=== PATIENT | female | born 1990 | race Caucasian/White ===

== ENCOUNTER 2018-11-08 11:05 | Inpatient (IN) ==
[2018-11-08 12:03] LABS: Bilirubin,Urine Negative (Negative); Clarity,Urine Slightly Cloudy (Clear); Color,Urine Yellow (Yellw/Straw); Glucose,Urine (UA) Negative (Negative); Leukocyte Esterase,Urine Moderate (Negative); Nitrite,Urine Negative (Negative); Urobilinogen,Urine 0.2 mg/dL (Less than 2)
[2018-11-08 12:09] LABS: Bacteria,Urine Few /hpf; Squamous Epithelial Cell,Urine 0-5 /hpf (0-5); WBC,Urine 51-189 /hpf (0-5)
[2018-11-08] MEDS ORDERED: Vancomycin Inj 1,000 MG in Sodium Chlor 0.9% Inj 250 ML IV.SIG ONE (12:55)
--- NOTE | 2018-11-08 13:10 | ED ---
HPI General Chief complaint: Skin/Abscess/Foreign Body Stated complaint: Poss Ins Bite L Arm Pain/Swelling x5d/Lower Back x Time Seen by Provider: 11/08/18 12:41 Source: patient Mode of arrival: ambulatory Limitations: no limitations History of Present Illness HPI narrative: Patient is a 28-year-old female who presents the emergency room with complaints of abscess to her left forearm. Patient reports that about 1 week ago, she began to have fevers and chills. Patient reports that shortly thereafter, she began to develop abscesses to her left forearm. Patient reports that the abscesses have gotten significantly bigger in size. Patient reports concerns for possible infection to her left forearm. 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 Patient also reports that she was a past IVDA. She last used drugs about 9 months ago. Tetanus is up to date. Patient is also complaining of bilateral flank pain. Patient is concerned that she may have a UTI. Related Data Home Medications Medication Instructions Recorded Confirmed Topamax 11/08/18 alprazolam 11/08/18 Allergies Allergy/AdvReac Type Severity Reaction Status Date / Time morphine Allergy Headache Verified 11/08/18 11:30 Review of Systems ROS: all other systems reviewed are negative PMFSH History History Provided By: Patient Medical History Medical History History of anxiety (Acute) History of intravenous drug abuse (Acute) History of use of contraceptive intrauterine device (IUD) (Acute) Social History Social History Substance History: Active Abuse Second Hand Smoke Exposure: Yes Smoking Status: Current every day smoker Tobacco Type: Cigarettes How Often Do You Have a Drink Containing Alcohol: 2 to 4 times a month Recent Travel in [facility] within the Last 8 Weeks: No Recent Out of Country Travel within the Last 8 Weeks: No Exam Narrative Exam Narrative: GENERAL: Mild distress SKIN: Focused skin assessment warm/dry. HEAD: Atraumatic. Normocephalic. EYES: Pupils equal and round. No scleral icterus. No injection or drainage. ENT: No nasal bleeding or discharge. Mucous membranes pink and moist. NECK: Trachea midline. No JVD. CARDIOVASCULAR: Tachycardic No murmur appreciated. RESPIRATORY: No accessory muscle use. Clear to auscultation. Breath sounds equal bilaterally. GASTROINTESTINAL: Abdomen soft, non-tender, nondistended. Hepatic and splenic margins not palpable. MUSCULOSKELETAL: No obvious deformities. No clubbing. No cyanosis. No edema. Patient with abscess to left forearm - there is no drainage or erythema NEUROLOGICAL: Awake and alert. No obvious cranial nerve deficits. Motor grossly within normal limits. Normal speech. PSYCHIATRIC: Appropriate mood and affect; insight and judgment normal. Course Initial Documented Vital Signs Temperature 98.2 F 11/08/18 11:31 Pulse Rate 105 H 11/08/18 11:31 Respiratory Rate 18 11/08/18 11:31 Blood Pressure 133/79 11/08/18 11:31 Pulse Oximetry 97 11/08/18 11:31 Last Documented Vital Signs Temperature 98.2 F 11/08/18 11:31 Pulse Rate 105 H 11/08/18 11:31 Respiratory Rate 18 11/08/18 11:31 Blood Pressure 133/79 11/08/18 11:31 Pulse Oximetry 97 11/08/18 11:31 Medical Decision Making MDM Narrative Medical decision making narrative: During the course of the patients emergency department visit, the patients history, examination, and differential diagnosis were reviewed with the patient. The patient was placed on a personnel monitor with oximetry and frequent blood pressure monitoring. The patient had an IV access obtained and blood work sent for analysis. The patient was initially provided IV vanco as well as IV rocephine The patients laboratory studies were reviewed and remarkable for WBC 16.4, hemoglobin 12.6, hematocrit 37.6, platelets 241 Radiology studies were reviewed and remarkable for: us of forearm with 4.5x1.9cm abscess - I am unable to I&D this as it appears to be a deep abscess, plan to admit the hospital and have hand surgery I&D this abscess. Case reviewed with Dr. Amaral who accepts pt to service Medical Screen Exam Complete: Yes Emergency Medical Condition: Yes Differential Diagnosis Differential Diagnosis: abscess, uti Medical Records Medical records reviewed: Yes I reviewed the patient's medical records. Lab Data Lab results reviewed: Yes I reviewed the patient's lab results. Result diagrams: 11/08/18 13:20 11/08/18 13:20 POC Results POC Urine Results Negative Lab Results 11/08/18 11/08/18 11/08/18 Range/Units 11:30 13:20 13:20 CBC w Diff Auto diff final WBC 16.4 H (4.0-11.0) th/mm3 RBC 4.20 (4.00-5.30) mil/mm3 Hgb 12.6 (11.6-15.3) gm/dL Hct 37.6 (35.0-46.0) % MCV 89.6 (80.0-100.0) fL MCH 30.0 (27.0-34.0) pg MCHC 33.6 (32.0-36.0) % RDW 13.0 (11.6-17.2) % Plt Count 241 (150-450) th/mm3 MPV 9.7 (7.0-11.0) fL Neut % (Auto) 78.8 H (16.0-70.0) % Lymph % (Auto) 11.2 (9.0-44.0) % [place] % (Auto) 9.2 H (0.0-8.0) % Eos % (Auto) 0.4 (0.0-4.0) % Baso % (Auto) 0.4 (0.0-2.0) % Neut # (Auto) 12.9 H (1.8-7.7) th/mm3 Lymph # (Auto) 1.8 (1.0-4.8) th/mm3 [place] # (Auto) 1.5 H (0.0-0.9) th/mm3 Eos # (Auto) 0.1 (0.0-0.4) th/mm3 Baso # (Auto) 0.1 (0.0-0.2) th/mm3 WBC Differential . Differential Comment . Sodium 136 (136-145) meq/L Potassium 4.2 (3.5-5.1) meq/L Chloride 100 (98-107) meq/L Carbon Dioxide 27.7 (21.0-32.0) meq/L Anion Gap 8 (5-15) meq/L BUN 18 (7-18) mg/dL Creatinine 0.86 (0.50-1.00) mg/dL Estimated GFR 78 L (>89) mL/min Random Glucose 81 (74-106) mg/dL Calcium 9.0 (8.5-10.1) mg/dL Ur Collection Type Clean catch Urine Color Yellow (Yellw/Straw) Urine Clarity Slightly cloudy (Clear) Urine pH 6.0 (5.0-8.5) Ur Specific [place] 1.020 (1.002-1.035) Urine Protein Negative (Neg-Trace) mg/dL Urine Glucose (UA) Negative (Negative) mg/dL Urine Ketones Negative (Negative) mg/dL Urine Occult Blood Small H (Negative) Urine Nitrate Negative (Negative) Urine Bilirubin Negative (Negative) Urine Urobilinogen 0.2 (Less than 2) mg/dL Ur Leukocyte Esterase Moderate H (Negative) Urine RBC 4-15 H (0-3) /hpf Urine WBC 51-189 H (0-5) /hpf Urine WBC Clumps Moderate H (None) Ur Squamous Epith Cells 0-5 (0-5) /hpf Urine Bacteria Few H (None) /hpf Micro UA Comment Culture indicated Ur Microscopic Review Microscopic reviewed Urine Culture Comments Culture indicated Imaging Data Attestation: I personally reviewed and interpreted this imaging study as follows : Radiologist's impression: Forearm X-Ray 11/08/18 12:55 CONCLUSION: Unremarkable study except for soft tissue swelling. Lower Extremity Ultrasound 11/08/18 12:55 CONCLUSION: 1. Soft tissue abscess. Discharge Plan Discharge Disposition Patient Disposition: ED Admit(ED Internal Use Only) Discharge Condition Condition: Stable Discharge Order Discharge Orders: ED Use Only Admit Order (Routine); Ordered 11/08/18 Ordered By: Sandra Guidry Discharge Details Diagnosis: Abscess of forearm, left Physicians Team ED Provider: Sandra Guidry Primary Care Provider: Palmer Cheung Rxs /Orders / Referrals /Forms Prescriptions: No Action Topamax RF: 0 alprazolam RF: 0 Status ED Status: With Doctor
[2018-11-08] MEDS ORDERED: Ibuprofen 600 MG Tablet PO ONE (13:39)
[2018-11-08 13:53] LABS: Baso # (Auto) 0.1 th/mm3 (0.0-0.2); Baso % (Auto) 0.4 % (0.0-2.0); Eos # (Auto) 0.1 th/mm3 (0.0-0.4); Eos % (Auto) 0.4 % (0.0-4.0); Hematocrit 37.6 % (35.0-46.0); Hemoglobin 12.6 gm/dL (11.6-15.3); Lymph # (Auto) 1.8 th/mm3 (1.0-4.8); Lymph % (Auto) 11.2 % (9.0-44.0); Mean Corpuscular HGB Conc 33.6 % (32.0-36.0); Mean Corpuscular Volume 89.6 fL (80.0-100.0); Mean Platelet Volume 9.7 fL (7.0-11.0); Mono # (Auto) 1.5 th/mm3 (0.0-0.9); Mono % (Auto) 9.2 % (0.0-8.0); Neut # (Auto) 12.9 th/mm3 (1.8-7.7); Neut % (Auto) 78.8 % (16.0-70.0); Platelet Count 241 th/mm3 (150-450); White Blood Count 16.4 th/mm3 (4.0-11.0)
[2018-11-08 14:00] LABS: Potassium 4.2 meq/L (3.5-5.1)
[2018-11-08 14:03] LABS: Carbon Dioxide 27.7 meq/L (21.0-32.0)
--- NOTE | 2018-11-08 14:11 | XR ---
EXAM DATE: 11/08/2018 2:05 PM EST AGE/SEX: 28 years / Female INDICATIONS: Left forearm swelling and pain. Possible insect bite CLINICAL DATA: This is the patient's initial encounter. Patient reports that signs and symptoms have been present for 1 week and indicates a pain score of 9/10. MEDICAL/SURGICAL HISTORY: None. None. COMPARISON: No prior exams available for comparison. FINDINGS: No definite fractures, or dislocations are identified. No definite lytic or sclerotic les ion is seen. Soft tissue swelling and subcutaneous edema is seen. CONCLUSION: Unremarkable study except for soft tissue swelling. Electronically signed by: Andrzej Roberts MD Board Certified Radiologist 11/08/2018 2:10 PM EST
--- NOTE | 2018-11-08 14:36 | US ---
EXAM DATE: 11/08/2018 2:32 PM EST AGE/SEX: 28 years / Female INDICATIONS: Left forearm pain swelling and redness. CLINICAL DATA: This is the patient's initial encounter. Patient reports that signs and symptoms have been present for 1 week and indicates a pain score of 7/10. MEDICAL/SURGICAL HISTORY: . Anxiety. Intravenous drug abuse. Contraceptive intrauterine devic e (IUD). None. COMPARISON: No prior exams available for comparison. FINDINGS: Examination of the left forearm with dedicated and focused attention to the area of the palpable lump demonstrates mixed echogenic area extends for 6.8 cm in length and maximum thickness of 4.5 x 1.9 cm characteristic of abscess. CONCLUSION: 1. Soft tissue abscess. Electronically signed by: Andrzej Roberts MD Board Certified Radiologist 11/08/2018 2:35 PM EST
[2018-11-08] MEDS ORDERED: Acetaminophen 325 MG Tablet PO PRN (15:57)
[2018-11-08] MEDS ORDERED: Vancomycin Consult Pharmacy OTHER PRN (16:23)
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
[2018-11-08] MEDS: LORazepam 1 MG Tablet PO PRN (17:15)
[2018-11-08] MEDS: Sod Chloride 0.9% Inj 1,000 ML IV.CONT SCH (17:17)
[2018-11-08 18:23] LABS: Amphetamine Screen,Urine Pos (Neg); Barbiturate Screen,Urine Neg (Neg); Cannabinoid Screen,Urine Neg (Neg); Cocaine Screen,Urine Pos (Neg)
[2018-11-08 18:28] LABS: Opiate Screen,Urine Neg (Neg)
[2018-11-08] MEDS: Senna/Docusate Sodium 8.6/50 MG Tablet PO SCH (20:50)
[2018-11-08] MEDS: Ciprofloxacin 500 MG Tablet PO SCH (20:50)
[2018-11-09] MEDS: LORazepam 1 MG Tablet PO PRN (02:28)
[2018-11-09] MEDS: Sod Chloride 0.9% Inj 1,000 ML IV.CONT SCH ×2 (02:28→15:22)
[2018-11-09] MEDS: Vancomycin Inj 1,000 MG in Sodium Chlor 0.9% Inj 250 ML IV.SIG SCH ×2 (02:29→15:22)
[2018-11-09 06:08] LABS: Chloride 102 meq/L (98-107); Potassium 3.7 meq/L (3.5-5.1); Sodium 136 meq/L (136-145)
[2018-11-09 06:17] LABS: Albumin 3.4 g/dL (3.4-5.0); Calcium 8.4 mg/dL (8.5-10.1); Glucose,Random 87 mg/dL (74-106)
[2018-11-09 06:18] LABS: Anion Gap 10 meq/L (5-15); Blood Urea Nitrogen 12 mg/dL (7-18); Carbon Dioxide 23.9 meq/L (21.0-32.0)
[2018-11-09 06:20] LABS: Alanine Aminotransferase 19 U/L (10-53); Aspartate Aminotransferase 13 U/L (15-37); Glomerular Filtration Rate Greater Than 89 mL/min (>89)
[2018-11-09 06:22] LABS: Total Protein 7.9 g/dL (6.4-8.2)
[2018-11-09 06:23] LABS: Alkaline Phosphatase 69 U/L (45-117)
[2018-11-09] MEDS ORDERED: Lidocaine 1%/Epinephrine 1:100,000 Inj 50 ML Vial INFILTRATN ONE (08:00)
[2018-11-09 08:37] LABS: Baso % (Auto) 0.2 % (0.0-2.0); Eos # (Auto) 0.1 th/mm3 (0.0-0.4); Eos % (Auto) 0.7 % (0.0-4.0); Hematocrit 38.7 % (35.0-46.0); Hemoglobin 12.6 gm/dL (11.6-15.3); Lymph # (Auto) 1.6 th/mm3 (1.0-4.8); Lymph % (Auto) 11.6 % (9.0-44.0); Mean Corpuscular HGB Conc 32.6 % (32.0-36.0); Mean Corpuscular Hemoglobin 29.4 pg (27.0-34.0); Mean Corpuscular Volume 90.1 fL (80.0-100.0); Mean Platelet Volume 10.1 fL (7.0-11.0); Mono # (Auto) 1.1 th/mm3 (0.0-0.9); Mono % (Auto) 8.2 % (0.0-8.0); Neut # (Auto) 11.2 th/mm3 (1.8-7.7); Neut % (Auto) 79.3 % (16.0-70.0); Platelet Count 267 th/mm3 (150-450); Red Blood Count 4.29 mil/mm3 (4.00-5.30); Red Cell Distribution Width 13.4 % (11.6-17.2)
[2018-11-09] MEDS: Ciprofloxacin 500 MG Tablet PO SCH (09:15)
[2018-11-09] MEDS: Senna/Docusate Sodium 8.6/50 MG Tablet PO SCH (09:15)
--- NOTE | 2018-11-09 10:37 | P.PNIM ---
Subjective Interval history: The patient was anxious about her procedure. She requested anxiety medications. She said she had to go home after the procedure. She said she will call the hospital and obtain her culture reports later. She had no other acute complaints. Physical Exam Vital signs: Vital Signs 11/08/18 11:31 11/08/18 16:45 11/08/18 17:17 Temperature 98.2 F 97.4 F L Pulse Rate 105 H 90 106 H Respiratory Rate 18 16 20 Blood Pressure 133/79 119/86 124/77 Pulse Oximetry 97 96 100 11/08/18 17:44 11/08/18 20:00 11/08/18 23:50 Temperature 97.2 F L Pulse Rate 114 H Respiratory Rate 18 18 18 Blood Pressure 137/92 H Pulse Oximetry 99 11/09/18 00:00 11/09/18 08:00 Temperature 98.5 F 97.7 F Pulse Rate 116 H 108 H Respiratory Rate 18 18 Blood Pressure 133/81 129/75 Pulse Oximetry 98 100 Intake & Output 11/08/18 11/09/18 11/09/18 18:59 06:59 18:59 Intake Total 319.7 / 319.7 1490 / 1490 Output Total 1500 / 1500 Balance 319.7 / 319.7 -10 / -10 Weight 64.1 kg 64.3 kg Intake: IV 319.7 / 319.7 1250 / 1250 NS Inj 1,000 ML @ 100 mls/hr IV 1000 / 1000 .CONT .Q10H YOVANA Rx#:[id number] Vancomycin Inj 1,000 MG In NS 250 / 250 250 / 250 Inj 250 ML @ 250 mls/hr IV.SIG Q12H YOVANA Rx#:[id number] Rocephin Inj 1,000 MG In NS Inj 69.7 / 69.7 100 ML @ 200 mls/hr IV.SIG ONCE ONE Rx#:[id number] Oral 240 / 240 Output: Urine 1500 / 1500 Other: # Voids 1 Date of Last Bowel Movement 11/08/18 11/08/18 Weight On Admission 65 kg Narrative: GENERAL: No apparent distress. SKIN: Focused skin assessment warm/dry. HEAD: Atraumatic. Normocephalic. EYES: Pupils equal and round. No scleral icterus. No injection or drainage. ENT: No nasal bleeding or discharge. Mucous membranes pink and moist. NECK: Trachea midline. No JVD. CARDIOVASCULAR: Tachycardic. No murmur appreciated. RESPIRATORY: No accessory muscle use. Clear to auscultation. Breath sounds equal bilaterally. GASTROINTESTINAL: Abdomen soft, non-tender, nondistended. Hepatic and splenic margins not palpable. MUSCULOSKELETAL: No obvious deformities. No clubbing. No cyanosis. No edema. Patient with abscess to dorsum of left forearm with mild erythema- there is no drainage. NEUROLOGICAL: Awake and alert. No obvious cranial nerve deficits. Motor grossly within normal limits. Normal speech. Results - Labs CBC & Chem 7: 11/09/18 08:10 11/09/18 05:41 Laboratory Results - last 24 hr 11/08/18 11/08/18 11/08/18 11:30 11:30 11:30 CBC w Diff WBC RBC Hgb Hct MCV MCH MCHC RDW Plt Count MPV Neut % (Auto) Lymph % (Auto) [place] % (Auto) Eos % (Auto) Baso % (Auto) Neut # (Auto) Lymph # (Auto) [place] # (Auto) Eos # (Auto) Baso # (Auto) WBC Differential Differential Comment Sodium Potassium Chloride Carbon Dioxide Anion Gap BUN Creatinine Estimated GFR Random Glucose Calcium Total Bilirubin AST ALT Alkaline Phosphatase Total Protein Albumin Ur Collection Type Clean catch Urine Color Yellow Urine Clarity Slightly cloudy Urine pH 6.0 Ur Specific [place] 1.020 Urine Protein Negative Urine Glucose (UA) Negative Urine Ketones Negative Urine Occult Blood Small H Urine Nitrate Negative Urine Bilirubin Negative Urine Urobilinogen 0.2 Ur Leukocyte Esterase Moderate H Urine RBC 4-15 H Urine WBC 51-189 H Urine WBC Clumps Moderate H Ur Squamous Epith Cells 0-5 Urine Bacteria Few H Micro UA Comment Culture indicated Ur Microscopic Review Microscopic reviewed Urine Culture Comments Culture indicated Urine Opiates Screen Neg Ur Barbiturates Screen Neg Ur Amphetamines Screen Pos H U Benzodiazepines Scrn Pos H Urine Cocaine Screen Pos H U Cannabinoids Screen Neg Chlam trachomat DNA PCR Not detected N.gonorrhoeae DNA (PCR) Not detected 11/08/18 11/08/18 11/09/18 13:20 13:20 05:41 CBC w Diff Auto diff final WBC 16.4 H RBC 4.20 Hgb 12.6 Hct 37.6 MCV 89.6 MCH 30.0 MCHC 33.6 RDW 13.0 Plt Count 241 MPV 9.7 Neut % (Auto) 78.8 H Lymph % (Auto) 11.2 [place] % (Auto) 9.2 H Eos % (Auto) 0.4 Baso % (Auto) 0.4 Neut # (Auto) 12.9 H Lymph # (Auto) 1.8 [place] # (Auto) 1.5 H Eos # (Auto) 0.1 Baso # (Auto) 0.1 WBC Differential . Differential Comment . Sodium 136 136 Potassium 4.2 3.7 Chloride 100 102 Carbon Dioxide 27.7 23.9 Anion Gap 8 10 BUN 18 12 Creatinine 0.86 0.73 Estimated GFR 78 L Greater than 89 Random Glucose 81 87 Calcium 9.0 8.4 L Total Bilirubin 1.0 AST 13 L ALT 19 Alkaline Phosphatase 69 Total Protein 7.9 Albumin 3.4 Ur Collection Type Urine Color Urine Clarity Urine pH Ur Specific [place] Urine Protein Urine Glucose (UA) Urine Ketones Urine Occult Blood Urine Nitrate Urine Bilirubin Urine Urobilinogen Ur Leukocyte Esterase Urine RBC Urine WBC Urine WBC Clumps Ur Squamous Epith Cells Urine Bacteria Micro UA Comment Ur Microscopic Review Urine Culture Comments Urine Opiates Screen Ur Barbiturates Screen Ur Amphetamines Screen U Benzodiazepines Scrn Urine Cocaine Screen U Cannabinoids Screen Chlam trachomat DNA PCR N.gonorrhoeae DNA (PCR) 11/09/18 08:10 CBC w Diff Auto diff final WBC 14.0 H RBC 4.29 Hgb 12.6 Hct 38.7 MCV 90.1 MCH 29.4 MCHC 32.6 RDW 13.4 Plt Count 267 MPV 10.1 Neut % (Auto) 79.3 H Lymph % (Auto) 11.6 [place] % (Auto) 8.2 H Eos % (Auto) 0.7 Baso % (Auto) 0.2 Neut # (Auto) 11.2 H Lymph # (Auto) 1.6 [place] # (Auto) 1.1 H Eos # (Auto) 0.1 Baso # (Auto) 0.0 WBC Differential . Differential Comment . Sodium Potassium Chloride Carbon Dioxide Anion Gap BUN Creatinine Estimated GFR Random Glucose Calcium Total Bilirubin AST ALT Alkaline Phosphatase Total Protein Albumin Ur Collection Type Urine Color Urine Clarity Urine pH Ur Specific [place] Urine Protein Urine Glucose (UA) Urine Ketones Urine Occult Blood Urine Nitrate Urine Bilirubin Urine Urobilinogen Ur Leukocyte Esterase Urine RBC Urine WBC Urine WBC Clumps Ur Squamous Epith Cells Urine Bacteria Micro UA Comment Ur Microscopic Review Urine Culture Comments Urine Opiates Screen Ur Barbiturates Screen Ur Amphetamines Screen U Benzodiazepines Scrn Urine Cocaine Screen U Cannabinoids Screen Chlam trachomat DNA PCR N.gonorrhoeae DNA (PCR) - Imaging Impressions Forearm X-Ray 11/08/18 12:55 CONCLUSION: Unremarkable study except for soft tissue swelling. Lower Extremity Ultrasound 11/08/18 12:55 CONCLUSION: 1. Soft tissue abscess. Assessment and Plan - Plan Left arm abscess/Sepsis Pt with tachycardia and leukocytosis. No clear etiology. The patient has a history of IV drug abuse but denies any recently. She says she was recently scratched by a cat. -continue IV vancomycin. -follow blood cultures. -hand surgery consult requested. I&D scheduled. -pain control as needed. -IVFs. UTI UA indicative of infection. -continue IV Cipro. -follow urine culture. STI The pt is concerned that she and her boyfriend may have an STI. -check HIV, hep panel and GC:Chlamydia probe. Drug use Tox panel came back positive for cocaine, amphetamines and benzodiazepines. -Cessation instruction. PPx: Ambulation
[2018-11-09 14:31] LABS: Hepatitits B Surface Antigen Nonreactive (Nonreactive)
[2018-11-09 15:03] LABS: Hepatitis A IgM Antibody Nonreactive (Nonreactive)
--- NOTE | 2018-11-09 17:25 | P.AMA ---
AMA Note Recommended Treatment Course: Continue IV antibiotics and follow cultures from I&D as well as blood and urine cultures. AMA Statement: Patient Yang Humphries has decided to leave the hospital against medical advice. This patient has the capacity to refuse care and understands the risks of leaving, including permanent disability and/or , and has had an opportunity to ask questions about his/her condition. The patient has been informed that he/she may return for care at any time, and follow up has been arranged/advised. Discharge Disposition: Against Medical Advice Patient Condition on Discharge: Stable
[2018-11-10] MEDS ORDERED: Pharmacy Ordered Lab Info OTHER ONE (02:45)
--- NOTE | 2018-11-10 19:46 | P.CON ---
History of Present Illness Service: Hand surgery Consult date: 11/09/18 Reason for Consult: Left upper extremity dorsal forearm abscess Primary Care Provider: Palmer Cheung MD Chief Complaint: Arm pain History of Present Illness: 28-year-old female with a past medical history of IV drug abuse, presented to the emergency department complaining of worsening severe left dorsal forearm pain times 3 days. Patient reported using extensive cocaine and passing out on a boat green party roughly 1 week previously. Patient also endorsed being scratched by her cat in the same area several days previously. Patient believes she sufficiently washed the scratches with soap and water. Patient was admitted and placed on IV antibiotics. Ultrasound was consistent with 6 x 5 x 2 cm left dorsal forearm abscess. Left forearm x-ray images personally reviewed by me, concurring with the final report which denoted only soft tissue swelling without other acute findings. Except as noted in the HPI review of systems negative to presenting complaint Family history noncontributory to presenting complaint Allergies listed as ceftriaxone and morphine Medication list reviewed Social history significant for IV drug and cocaine abuse Medical/surgical history Gastric ulcer with perforation History of anxiety History of intravenous drug abuse History of use of contraceptive intrauterine device (IUD) [facility] - History History Provided By: Patient - Medical History Medical History: Medical History (Last Updated 11/08/18 @ 16:35 by Syed Amaral DO) Gastric ulcer with perforation History of anxiety History of intravenous drug abuse History of use of contraceptive intrauterine device (IUD) - Family History Family History: Family History (Last Updated 11/08/18 @ 16:36 by Syed Amaral DO) Other Hyperthyroidism - Tobacco History Second Hand Smoke Exposure: Yes Tobacco Use In Past 30 Days: Yes Smoking Status: Current every day smoker Tobacco Type: Cigarettes - Alcohol History How Often Do You Have a Drink Containing Alcohol: 2 to 4 times a month - Substance Use History Substance History: Past History - Substance Use Type Crack/Cocaine Route Used: Inhalation Last Used: THIS WEEK Opiates Status: Early Remission Route Used: Intravenously Last Used: [place] 8 MONTHS AGO - Travel History Recent Travel in the [place] Within the Last 8 Weeks: No Recent Travel Out of the Country Within the Last 8 Weeks: No - Immunization History Tetanus Immunization: <5 Years Medications and Allergies Allergies Allergy/AdvReac Type Severity Reaction Status Date / Time ceftriaxone Allergy Itching Verified 11/08/18 16:23 morphine Allergy Headache Verified 11/08/18 11:30 Home Medications Medication Instructions Recorded Confirmed Type Topamax 11/08/18 History Physical Exam Narrative: No apparent anxiety moist mucous membranes PERRLA skin without rash respirations nonlabored gait within normal limits digits warm well perfused Left upper extremity Dorsal forearm with extensive erythema Severely tender over mid dorsal forearm Large area of fluctuance roughly 6 cm in diameter Patient with full active range of motion of left hand and wrist without significant pain Patient denies active deficits Results - Labs CBC & Chem 7: 11/09/18 08:10 11/09/18 05:41 Assessment and Plan - Assessment (1) Abscess of forearm, left Code(s): L02.414 - Cutaneous abscess of left upper limb Status: Acute - Plan 28-year-old female with left dorsal forearm abscess Risk benefits alternative treatments discussed All questions answered and the patient expressed understanding Specifically patient expressed understanding that given the size and complexity of her abscess as well as her significant concurrent risk factors, social and otherwise, she is at very high risk of tendon rupture, nerve injury, deficits in active/passive range of motion, the need for further procedures, and significant scarring Patient elected to assume the risks of left dorsal forearm abscess incision and drainage Informed consent obtained Under sterile conditions, 1% lidocaine with epinephrine instilled in a local field block A 4 cm longitudinal skin incision was made overlying the area of fluctuance Blunt spreading with scissors was used to separate the dermis and subcutaneous tissue Copious purulence was immediately encountered Cultures were sent x2 The abscess cavity tracked 3 cm radially and ulnarly All septations were lysed using gentle digital exploration The abscess cavity was copiously irrigated and packed with Betadine soaked gauze The surgical site was cleaned and dressed with dry gauze At the end of the procedure the patient reported no changes in sensation/active range of motion of her hand and digits Nursing given a verbal order to remove the packing before the patient goes to bed and replace with iodoform wick to be changed daily Antibiotics per primary Will follow
== END 2018-11-09 18:20 | disposition left against medical advice (07) ==
LOC: PHEDA 11:05 → PHED 11:05 → PH3 16:50
PROVIDERS: ADMIT Hospitalist; ATTEND Hospitalist